=== PATIENT | female | born 1960 | race Caucasian/White ===

== ENCOUNTER 2023-03-27 14:47 | Emergency (ER) | payer BC ==
[2023-03-27] MEDS: Iopamidol 755 Mg/ML 100 ML Bottle IVPUSH ONE (15:39)
[2023-03-27] MEDS: Sodium Chloride 0.9% 10 ML Syringe FLUSH PRN (16:35)
== END 2023-03-27 16:45 | disposition home or self-care (01) ==
LOC: VM.ED 14:47
DX: J18.9 Pneumonia, unspecified organism (principal); Z87.891 Personal history of nicotine dependence; Z79.899 Other long term (current) drug therapy; Z88.8 Allergy status to other drugs, medicaments and biological substances
CPT/HCPCS: 71275; 99285; J1642; Q9967; J3490